=== PATIENT | female | born 1940 | race Caucasian/White ===

== ENCOUNTER 2018-09-09 18:38 | Emergency (ER) | payer MEDICARE, OTHER, MEDICAID ==
[2018-09-09 19:21] LABS: ADD MAN DIFF? NO
[2018-09-09] MEDS: SOD CHLORIDE 0.9% 500 ML IV (19:22)
[2018-09-09] MEDS: ONDANSETRON 4 MG INJ IV (19:23)
[2018-09-09] MEDS: morphine 4 MG/ML VIAL IV ×2 (19:23→23:04)
[2018-09-09 19:24] LABS: BASOPHILS % 0.3 % (0.0-2.0); EOSINOPHILS # 0.1 10^3/ul (0.0-0.5); EOSINOPHILS % 1.3 % (0.0-7.0); HEMATOCRIT 38.6 % (37.0-47.0); HEMOGLOBIN 12.2 g/dl (12.0-16.0); LYMPHOCYTES % 27.7 % (15.0-51.0); MEAN CORPUSCULAR HGB CONC 31.6 g/dl (32.0-37.0); MEAN CORPUSCULAR VOLUME 91.7 fl (82.0-101.0); MEAN PLATELET VOLUME 10.2 fl (7.4-10.4); MONOCYTE # 0.5 10^3/ul (0.3-0.9); MONOCYTES % 6.3 % (0.0-11.0); NEUTROPHIL # 4.5 10^3/ul (1.6-7.5); NEUTROPHILS % 63.3 % (39.0-77.0); PLATELET COUNT 218 10^3/UL (140-415); RED BLOOD COUNT 4.21 10^6/ul (4.20-5.40); RED CELL DISTRIBUTION WIDTH 12.6 % (11.5-14.5)
[2018-09-09 19:24] LABS: WHITE BLOOD COUNT 7.2 10^3/ul (4.8-10.8)
[2018-09-09 19:29] LABS: ALANINE AMINOTRANSFERASE 21 IU/L (13-69); ALBUMIN 4.1 g/dl (3.3-4.9); ALBUMIN/GLOBULIN RATIO 1.28; ALKALINE PHOSPHATASE 47 IU/L (42-121); ANION GAP 9 (5-13); ASPARTATE AMINO TRANSFERASE 24 IU/L (15-46); BILIRUBIN,INDIRECT 0.3 mg/dl (0-1.1); BILIRUBIN,TOTAL 0.3 mg/dl (0.2-1.3); BLOOD UREA NITROGEN 18 mg/dl (7-20); CALCIUM 10.4 mg/dl (8.4-10.2); CARBON DIOXIDE 27 mmol/L (21-31); CHLORIDE 105 mmol/L (97-110); CREATININE 0.86 mg/dl (0.44-1.00); GLUCOSE 155 mg/dl (70-220); LIPASE 64 U/L (23-300); POTASSIUM 3.6 mmol/L (3.5-5.1); SODIUM 141 mmol/L (135-144); TOTAL PROTEIN 7.3 g/dl (6.1-8.1)
[2018-09-09 19:41] LABS: TROPONIN-I < 0.012 ng/ml (0.000-0.120)
[2018-09-09 19:43] LABS: INR 0.93; PROTIME 12.6 Sec (11.9-14.9)
[2018-09-09 19:44] LABS: PARTIAL THROMBOPLASTIN TIME 28.5 Sec (23.0-35.0)
[2018-09-09 20:50] LABS: ADD UMIC NO; UR ASCORBIC ACID NEGATIVE (NEGATIVE); UR BILIRUBIN (Dip) NEGATIVE (NEGATIVE); UR BLOOD (Dip) NEGATIVE (NEGATIVE); UR CLARITY CLEAR (CLEAR); UR COLOR STRAW (YELLOW); UR GLUCOSE (Dip) NEGATIVE (NEGATIVE); UR KETONES (Dip) NEGATIVE (NEGATIVE); UR LEUKOCYTE ESTERASE (Dip) NEGATIVE Leu/ul (NEGATIVE); UR NITRITE (Dip) NEGATIVE (NEGATIVE); UR SPECIFIC GRAVITY (Dip) 1.005 (1.003-1.030); UR TOTAL PROTEIN (Dip) NEGATIVE (NEGATIVE); UR UROBILINOGEN (Dip) NEGATIVE (NEGATIVE)
== END 2018-09-10 00:17 | disposition home or self-care (01) ==
LOC: E/R 09-10 00:17
DX: S72.142A Displaced intertrochanteric fracture of left femur, initial encounter for closed fracture (principal); W18.39XA Other fall on same level, initial encounter; Y92.000 Kitchen of unspecified non-institutional (private) residence as the place of occurrence of the external cause
CPT/HCPCS: 36415; 71045; 72170; 73510; 80053; 81003; 83690; 84484; 85025; 85610; 85730; 93005; 96374; 96375; 96376; 99285-25